=== PATIENT | female | born 1965 | race Caucasian/White ===

== ENCOUNTER 2017-02-10 11:32 | Emergency (ER) | payer OTHER ==
[2017-02-10 11:59] LABS: #Basophils 0.1 thou/uL (0.0-0.2); #Eosinphils 0.1 thou/uL (0.0-0.7); #Lymphocytes 2.3 thou/uL (1.20-3.40); #Monocytes 0.3 thou/uL (0.11-0.59); #Neutrophils 2.3 thou/uL (1.40-6.50); %Basophils 1.3 % (0.0-1.0); %Eosinophils 1.4 % (0.0-10.0); %Lymphocytes 45.4 % (21.0-51.0); %Monocytes 5.8 % (0.0-10.0); Hemoglobin 12.2 g/dL (12.0-16.0); Mean Corpuscular HGB CONC 32.7 g/dL (32.0-36.0); Mean Corpuscular Hemoglobin 29.1 pg (27.0-31.0); Mean Platelet Volume 6.9 fL (7.4-10.4); Platelet Count 276 thou/uL (130-400); RBC Distribution Width 12.7 % (11.5-14.5)
[2017-02-10 12:13] LABS: ALT (SGPT) 12 U/L (8-55); AST (SGOT) 13 U/L (5-34); Albumin 4.3 g/dL (3.5-5.0); Alkaline Phosphatase 76 U/L (40-150); Anion Gap 15 mmol/L (10-20); BUN (Urea Nitrogen) 14 mg/dL (9.8-20.1); Bilirubin, Total 0.3 mg/dL (0.2-1.2); Calc. Creatinine Clearance 0 mL/min (70-130); Calcium 9.8 mg/dL (7.8-10.44); Carbon Dioxide 26 mmol/L (22-29); Chloride 103 mmol/L (98-107); Estimated GFR-MDRD 89; Globulin 3.2 g/dL (2.4-3.5); Glucose 94 mg/dL (70-105); Lipase 39 U/L (8-78); Potassium 4.2 mmol/L (3.5-5.1); Protein, Total 7.5 g/dL (6.0-8.3); Sodium 140 mmol/L (136-145)
[2017-02-10 12:14] LABS: CKMB 0.9 ng/mL (0-6.6); Troponin I 0.011 ng/mL (< 0.028)
--- NOTE | 2017-02-10 13:10 | RAD ---
RADIOGRAPH CHEST 2 VIEWS: HISTORY: A 51-year-old female with acute chest pain on the left side, pressure type. FINDINGS: There is no air space density, pulmonary edema, pleural effusion, pneumothorax, or cardiomegaly. IMPRESSION: No acute cardiopulmonary findings. jn [] POS: [facility]
--- NOTE | 2017-03-24 15:48 | EKG ---
Test Reason : Blood Pressure : / mmHG Vent. Rate : 086 BPM Atrial Rate : 086 BPM P-R Int : 162 ms QRS Dur : 102 ms QT Int : 378 ms P-R-T Axes : 059 077 044 degrees QTc Int : 452 ms Normal sinus rhythm Normal ECG Confirmed by KASSY CENTENO D.O. ([id number]), editorial intern TIMOTEO ARGUETA ([id number] on 03/24/2017 3:47:53 PM Referred By: TARYN Confirmed By:KASSY CENTENO D.O.
== END 2017-02-10 12:22 | disposition home or self-care (01) ==
LOC: SCSER 11:32
DX: R07.89 Other chest pain (principal); K21.9 Gastro-esophageal reflux disease without esophagitis; Z79.899 Other long term (current) drug therapy
CPT/HCPCS: 71020; 80053; 82553; 83690; 83880; 84484; 85025; 93005

== ENCOUNTER 2017-04-23 09:21 | Outpatient (CLI) | payer OTHER ==
--- NOTE | 2017-04-23 10:16 | RAD ---
CHEST PA AND LATERAL: HISTORY: A 51-year-old female with a history of dyspnea. COMPARISON: 10/24/16. FINDINGS: Patchy parenchymal changes are noted in the superior segment of the left lower lobe, evidence for pne umonia. Small hiatal hernia. Heart size is normal. No pleural effusion. IMPRESSION: Evidence for patchy left lower lobe superior segment pneumonia. Recommend followup over 3-4 weeks to document clearing. POS: [facility]
== END 2017-04-23 09:22 | disposition home or self-care (01) ==
LOC: RAD 09:21
PROVIDERS: ATTEND Internal Medicine Pulmonary Disease
DX: R06.00 Dyspnea, unspecified (principal); J18.9 Pneumonia, unspecified organism
CPT/HCPCS: 71046

== ENCOUNTER 2017-08-30 17:36 | Emergency (ER) | payer OTHER ==
[2017-08-30] MEDS ORDERED: Ketorolac Tromethamine 60 MG/2 ML VIAL ONE (18:08)
[2017-08-30] MEDS ORDERED: Cyclobenzaprine 10 MG TAB ONE (18:08)
--- NOTE | 2017-08-30 19:20 | RAD ---
THREE VIEWS RIGHT SHOULDER: 08/30/17 HISTORY: Right shoulder pain, decreased range of motion. COMPARISON: None available. FINDINGS: The coracoclavicular and acromioclavicular distances are within normal limits. There is no evidence o f a fracture, dislocation, or other osseous abnormality involving the right shoulder. IMPRESSION: No acute osseous abnormality. POS: [facility]
== END 2017-08-30 19:22 | disposition home or self-care (01) ==
LOC: SCSER 17:36
DX: M25.511 Pain in right shoulder (principal); K21.9 Gastro-esophageal reflux disease without esophagitis
CPT/HCPCS: 96372; J1885

== ENCOUNTER 2018-04-03 08:47 | Outpatient (CLI) | payer OTHER ==
--- NOTE | 2018-04-03 09:46 | RAD ---
RIGHT INDEX FINGER THREE VIEWS: 04/03/2018 HISTORY: Injury. Trauma. Pain. COMPARISON: None. FINDINGS: There is soft tissue swelling involving the index finger, most prominent at the base. There is no ra diopaque foreign body or subcutaneous gas. No displaced fracture or dislocation. IMPRESSION: No acute osseous abnormality. POS: [facility]
== END 2018-04-03 08:48 | disposition home or self-care (01) ==
LOC: SCSRAD 08:47
PROVIDERS: ATTEND Nurse Practitioner Family
DX: M79.641 Pain in right hand (principal)

== ENCOUNTER 2020-01-28 09:20 | Emergency (ER) | payer OTHER ==
[2020-01-28] MEDS ORDERED: Ibuprofen 800 MG TAB ONE (10:07)
--- NOTE | 2020-01-28 10:19 | RAD ---
EXAM: 3 views of the left hand COMPARISON: None HISTORY: Thumb pain after trauma FINDINGS: 3 views of the hand shows no evidence of acute fracture or dislocation. No degenerative brock nges are seen. Mild thumb soft tissue swelling is present. IMPRESSION: No evidence of acute osseous abnormality.
== END 2020-01-28 10:35 | disposition home or self-care (01) ==
LOC: ERS 09:20
DX: S60.012A Contusion of left thumb without damage to nail, initial encounter (principal); W19.XXXA Unspecified fall, initial encounter; Y99.0 Civilian activity done for income or pay

== ENCOUNTER 2020-12-02 14:00 | Outpatient (CLI) | payer OTHER | END 2020-12-02 14:01 | disposition home or self-care (01) | LOC: BICRAD 14:00 | PROVIDERS: ATTEND Family Medicine | DX: R06.02 Shortness of breath (principal) | CPT/HCPCS: 71046 ==

== ENCOUNTER 2021-08-23 14:56 | Outpatient (CLI) | payer BC | END 2021-08-23 14:57 | disposition home or self-care (01) | LOC: SCSRAD 14:56 | PROVIDERS: ATTEND Family Medicine | DX: R05.9 Cough, unspecified (principal); K44.9 Diaphragmatic hernia without obstruction or gangrene | CPT/HCPCS: 71046 ==

== ENCOUNTER 2021-11-16 11:14 | Outpatient (CLI) | payer BC | END 2021-11-16 11:15 | disposition home or self-care (01) | LOC: BICRAD 11:14 | PROVIDERS: ATTEND Nurse Practitioner Family | DX: M54.42 Lumbago with sciatica, left side (principal); G89.29 Other chronic pain; M43.16 Spondylolisthesis, lumbar region; M47.816 Spondylosis without myelopathy or radiculopathy, lumbar region | CPT/HCPCS: 72100 ==

== ENCOUNTER 2021-11-18 07:15 | Outpatient (CLI) | payer BC | END 2021-11-18 07:16 | disposition home or self-care (01) | LOC: RAD 07:15 | PROVIDERS: ATTEND Surgery | DX: K21.9 Gastro-esophageal reflux disease without esophagitis (principal); K44.9 Diaphragmatic hernia without obstruction or gangrene | CPT/HCPCS: 74246 ==

== ENCOUNTER 2021-11-22 13:53 | Outpatient (CLI) | payer BC | END 2021-11-22 13:54 | disposition home or self-care (01) | LOC: MRI 13:53 | PROVIDERS: ATTEND Nurse Practitioner Family | DX: M54.42 Lumbago with sciatica, left side (principal); G89.29 Other chronic pain; M48.061 Spinal stenosis, lumbar region without neurogenic claudication; M48.07 Spinal stenosis, lumbosacral region; M43.16 Spondylolisthesis, lumbar region | CPT/HCPCS: 72148 ==

== ENCOUNTER 2022-06-28 09:32 | Outpatient (CLI) | payer BC | END 2022-06-28 09:33 | disposition home or self-care (01) | LOC: MRI 09:32 | PROVIDERS: ATTEND Anesthesiology Pain Medicine | DX: M48.062 Spinal stenosis, lumbar region with neurogenic claudication (principal); M51.36 Other intervertebral disc degeneration, lumbar region; M47.816 Spondylosis without myelopathy or radiculopathy, lumbar region | CPT/HCPCS: 72148 ==

== ENCOUNTER 2022-10-13 13:14 | Outpatient (CLI) | payer BC | END 2022-10-13 13:15 | disposition home or self-care (01) | LOC: DTY/OP 13:14 | PROVIDERS: ATTEND Surgery | DX: K21.9 Gastro-esophageal reflux disease without esophagitis (principal); K44.9 Diaphragmatic hernia without obstruction or gangrene; K31.1 Adult hypertrophic pyloric stenosis | CPT/HCPCS: 97802 ==

== ENCOUNTER 2023-01-08 08:23 | Outpatient (CLI) | payer BC ==
[2023-01-08 10:46] LABS: Hematocrit 35.8 % (34.9-44.5); Hemoglobin 11.7 g/dL (12.0-15.5); Manual Diff?? YES; Mean Corpuscular HGB CONC 32.7 g/dL (32.0-36.0); Mean Corpuscular Hemoglobin 30.2 pg (27.0-33.0); Mean Corpuscular Volume 92.3 fl (81.6-98.3); Mean Platelet Volume 10.5 fl (7.4-10.4); Platelet Count 275 10x3/uL (150-450); Red Blood Cell (RBC) Count 3.88 10x6/uL (3.90-5.03); White Blood Cell (WBC) Count 5.3 10x3/uL (3.5-10.5)
[2023-01-08 11:14] LABS: Band 1 % (5-11); Lymphocytes 62 % (21-51); Monocytes 8 % (0-10); Neutrophil 28 % (42-75); Platelet Adequacy Comment Appears Adequate; RBC Morph Comment Within Normal Limits; Reactive Lymphocytes 1 % (0-10)
[2023-01-08 11:25] LABS: Anion Gap 15 mmol/L (10-20); BUN (Urea Nitrogen) 17 mg/dL (9.8-20.1); Calc. Creatinine Clearance 0 mL/min (70-130); Calcium 8.9 mg/dL (7.8-10.44); Carbon Dioxide 25 mmol/L (22-29); Chloride 103 mmol/L (98-107); Estimated GFR 100; Glucose 84 mg/dL (70-105); Potassium 4.5 mmol/L (3.5-5.1); Sodium 138 mmol/L (136-145)
== END 2023-01-08 08:24 | disposition home or self-care (01) ==
LOC: LABBT 08:23
PROVIDERS: ATTEND Surgery
DX: Z01.818 Encounter for other preprocedural examination (principal); K44.9 Diaphragmatic hernia without obstruction or gangrene; K31.1 Adult hypertrophic pyloric stenosis
CPT/HCPCS: 80048; 85025; 93005; 93010

== ENCOUNTER 2023-01-16 05:37 | Inpatient (IN) | payer BC ==
[2023-01-16] MEDS ORDERED: EPINEPHrine 1 MG/ML VIAL ONE (06:47)
[2023-01-16] MEDS ORDERED: Bupivacaine 0.25% HCL 30 ML VIAL ONE (06:48)
[2023-01-16] MEDS ORDERED: Lidocaine 1% MPF 2 ML VIAL ONE (06:53)
[2023-01-16] MEDS ORDERED: PROPOFOL 20 ML ONE ×2 (07:01→08:44)
[2023-01-16] MEDS ORDERED: fentaNYL PF 100 MCG/2 ML SYRINGE ONE ×2 (07:01→08:33)
[2023-01-16] MEDS ORDERED: Lidocaine 1% PF 5 ML VIAL ONE ×2 (07:01→07:43)
[2023-01-16] MEDS ORDERED: Rocuronium Bromide 10 MG/ML (10ML VIAL) ONE ×2 (07:01→07:43)
[2023-01-16] MEDS ORDERED: Succinylcholine 200 MG/10 ml SYRINGE FS ONE (07:03)
[2023-01-16] MEDS ORDERED: Famotidine/PF 20 mg/2ml Vial ONE (07:21)
[2023-01-16] MEDS ORDERED: PROPOFOL 40 ML ONE (07:25)
[2023-01-16] MEDS ORDERED: LevoFLOXacin 500 mg/D5W 100 ML BAG ONE (07:37)
[2023-01-16] MEDS ORDERED: Ondansetron PF 4 MG/2 ML Vial ONE ×3 (07:43→12:11)
[2023-01-16] MEDS ORDERED: Glycopyrrolate 0.2 MG/ML 5 ML SYRINGE ONE ×2 (07:43→09:53)
[2023-01-16] MEDS ORDERED: NEOSTIGMINE 3 MG/3 ML SYR 3 MG/3 ML SYRINGE ONE ×2 (07:43→09:53)
[2023-01-16] MEDS ORDERED: Dexamethasone 20 MG/5 ML VIAL ONE ×2 (07:43→07:59)
[2023-01-16] MEDS ORDERED: PHENYLEPHRINE-NS 100 MCG/ML 10 ML SYRINGE ONE ×2 (07:43→08:21)
[2023-01-16] MEDS ORDERED: PROPOFOL 200 MG/20 ML VIAL ONE (07:43)
[2023-01-16] MEDS ORDERED: Esmolol 100 MG/10 ML VIAL ONE ×2 (08:08→08:37)
[2023-01-16] MEDS ORDERED: Dexmedetomidine 200 MCG/2 ML VIAL ONE (08:21)
[2023-01-16] MEDS ORDERED: Phenylephrine 40 MG/NS 250 ML 250 ML ONE (08:49)
[2023-01-16] MEDS ORDERED: diphenhydrAMINE 25 MG CAP PO PRN (09:52)
[2023-01-16] MEDS ORDERED: Ondansetron HCl/PF 4 MG/2 ML Vial IVP PRN (09:52)
[2023-01-16] MEDS ORDERED: FENTANYL 500 MCG/10 ML VIAL 2,000 MCG in Sodium Chloride 0.9% 60 ML IV PRN (09:52)
[2023-01-16] MEDS ORDERED: Ondansetron PF 4 MG/2 ML Vial IVP PRN ×2 (09:52→10:23)
[2023-01-16] MEDS ORDERED: Promethazine HCl 25 MG/ML VIAL IM PRN ×3 (09:52→10:23)
[2023-01-16] MEDS ORDERED: diphenhydrAMINE 50 MG/ML VIAL IVP PRN ×2 (09:52→10:23)
[2023-01-16] MEDS ORDERED: Naloxone HCl 0.4 mg/ml Vial IV PRN (09:52)
[2023-01-16] MEDS ORDERED: diphenhydrAMINE 50 MG/ML VIAL IM PRN (09:52)
[2023-01-16] MEDS ORDERED: Communication Order-Pharmacy FS SCH (10:00)
[2023-01-16] MEDS ORDERED: Dextrose 50% Abboject 50 ML SYRINGE SLOW IVP PRN (10:23)
[2023-01-16] MEDS ORDERED: Acetaminophen 325 MG/10.15 ML UDCUP PO PRN (10:23)
[2023-01-16] MEDS ORDERED: Dextrose 5% in Water 1,000 ML IV PRN (10:23)
[2023-01-16] MEDS ORDERED: hydrALAZINE 20 MG/ML VIAL SLOW IVP PRN (10:23)
[2023-01-16] MEDS ORDERED: Glucagon 1 MG/ML KIT IM PRN (10:23)
[2023-01-16] MEDS ORDERED: Hydrocodone-Acetamin 15 ML UDCUP PO PRN (10:23)
[2023-01-16] MEDS ORDERED: Albuterol 200 PUFF (6.7GM INHALER) INH PRN (10:23)
[2023-01-16] MEDS ORDERED: Ipratropium/Albuterol 3 ML NEB NEB PRN (10:23)
[2023-01-16] MEDS ORDERED: fentaNYL 50 mcg/mL 1 mL Vial ONE ×2 (10:34→10:50)
[2023-01-16] MEDS ORDERED: Artificial Tear Sol 15 ML BOT EA EYE PRN (10:40)
[2023-01-16] MEDS: D5 1/2 NS w/20 mEq KCL 1,000 ML IV SCH ×3 (14:39→22:40)
[2023-01-16 14:41] VITALS: BMI 29.0
[2023-01-16] MEDS: Ketorolac Tromethamine 30 MG/ML VIAL IVP PRN ×2 (16:22→22:16)
[2023-01-16] MEDS: Estradiol 1 MG TAB PO SCH (21:13)
[2023-01-17 05:08] LABS: #Monocytes 0.7 thou/uL (0.11-0.59); #Neutrophils 4.9 thou/uL (1.40-6.50); %Basophils 0.4 % (0.0-1.0); %Lymphocytes 19.7 % (21.0-51.0); %Monocytes 9.7 % (0.0-10.0); %Neutrophils 70.1 % (42.0-75.0); Hematocrit 33.7 % (36.0-47.0); Hemoglobin 10.9 g/dL (12.0-16.0); Mean Corpuscular HGB CONC 32.3 g/dL (32.0-36.0); Mean Corpuscular Hemoglobin 31.1 pg (27.0-31.0); Mean Platelet Volume 10.3 fL (7.4-10.4); Platelet Count 222 10x3/uL (130-400); RBC Distribution Width 12.9 % (11.5-14.5); Red Blood Cell (RBC) Count 3.51 mill/uL (4.20-5.40)
[2023-01-17] MEDS: Ketorolac Tromethamine 30 MG/ML VIAL IVP PRN ×3 (05:26→18:14)
[2023-01-17 05:49] LABS: Anion Gap 14 mmol/L (10-20); BUN (Urea Nitrogen) 6 mg/dL (9.8-20.1); Calc. Creatinine Clearance 105 mL/min (70-130); Calcium 8.4 mg/dL (7.8-10.44); Carbon Dioxide 19 mmol/L (22-29); Chloride 107 mmol/L (98-107); Estimated GFR 100; Glucose 105 mg/dL (70-105); Potassium 4.2 mmol/L (3.5-5.1); Sodium 136 mmol/L (136-145)
[2023-01-17] MEDS: D5 1/2 NS w/20 mEq KCL 1,000 ML IV SCH ×2 (06:38→14:50)
[2023-01-17] MEDS ORDERED: Fentanyl 100 MCG/2 ML VIAL SLOW IVP PRN (09:13)
[2023-01-17] MEDS ORDERED: fentaNYL 50 mcg/mL 1 mL Vial SLOW IVP PRN (09:24)
[2023-01-17] MEDS: Pantoprazole 40 MG VIAL IVP SCH (09:33)
[2023-01-17] MEDS: Hydrocodone-Acetamin 15 ML UDCUP PO PRN ×2 (09:33→14:49)
[2023-01-17] MEDS: Estradiol 1 MG TAB PO SCH (20:54)
[2023-01-18] MEDS: Ketorolac Tromethamine 30 MG/ML VIAL IVP PRN ×3 (00:06→11:40)
[2023-01-18] MEDS: Hydrocodone-Acetamin 15 ML UDCUP PO PRN ×2 (03:19→09:43)
[2023-01-18] MEDS: D5 1/2 NS w/20 mEq KCL 1,000 ML IV SCH ×2 (03:20→11:26)
[2023-01-18 04:17] VITALS: TEMP 98.4
[2023-01-18 08:04] VITALS: BP 115/73
[2023-01-18] MEDS: Pantoprazole 40 MG VIAL IVP SCH (09:44)
== END 2023-01-18 12:32 | disposition home or self-care (01) | DRG 327 ==
LOC: SDC 05:37 → SJJU 13:15
PROVIDERS: ADMIT Surgery; ATTEND Surgery
PROC: 0BQT4ZZ Repair Diaphragm, Percutaneous Endoscopic Approach (ICD-10-PCS; principal; 2023-01-16)
PROC: 0D164ZA Bypass Stomach to Jejunum, Percutaneous Endoscopic Approach (ICD-10-PCS; 2023-01-16)
PROC: 0DB64ZZ Excision of Stomach, Percutaneous Endoscopic Approach (ICD-10-PCS; 2023-01-16)
PROC: 8E0W4CZ Robotic Assisted Procedure of Trunk Region, Percutaneous Endoscopic Approach (ICD-10-PCS; 2023-01-16)
PROC: 3E033XZ Introduction of Vasopressor into Peripheral Vein, Percutaneous Approach (ICD-10-PCS; 2023-01-16)
DX: K44.9 Diaphragmatic hernia without obstruction or gangrene (principal); K31.1 Adult hypertrophic pyloric stenosis; K21.9 Gastro-esophageal reflux disease without esophagitis; Z96.652 Presence of left artificial knee joint; Z79.899 Other long term (current) drug therapy; Z79.890 Hormone replacement therapy; Z98.890 Other specified postprocedural states; Z90.710 Acquired absence of both cervix and uterus; Z82.49 Family history of ischemic heart disease and other diseases of the circulatory system; Z88.0 Allergy status to penicillin; Z91.040 Latex allergy status; Z91.018 Allergy to other foods
CPT/HCPCS: 36415; 80048; 85025; 88307; 94760; C9113; J0171; J1100; J1650; J1885; J1956; J2405; J2704; J3010; J3480; J3490; S0020; S0028

== ENCOUNTER 2023-03-26 08:42 | Outpatient (CLI) | payer BC ==
[2023-03-26] MEDS ORDERED: Magnevist 469MG/ML 20 ML VIAL ONE ×2 (11:13)
== END 2023-03-26 08:43 | disposition home or self-care (01) ==
LOC: MRI 08:42
PROVIDERS: ATTEND Student in an Organized Health Care Education/Training Program
DX: H53.40 Unspecified visual field defects (principal); R22.0 Localized swelling, mass and lump, head
CPT/HCPCS: 70543; 70553

== ENCOUNTER 2023-04-09 14:22 | Outpatient (CLI) | payer BC | END 2023-04-09 14:23 | disposition home or self-care (01) | LOC: BICMAMMO 14:22 | PROVIDERS: ATTEND Family Medicine | DX: Z12.31 Encounter for screening mammogram for malignant neoplasm of breast (principal); Z85.43 Personal history of malignant neoplasm of ovary; Z98.890 Other specified postprocedural states; Z80.3 Family history of malignant neoplasm of breast | CPT/HCPCS: 77063; 77067 ==

== ENCOUNTER 2023-09-01 12:39 | Outpatient (CLI) | payer BC | END 2023-09-01 12:40 | disposition home or self-care (01) | LOC: RAD 12:39 | PROVIDERS: ATTEND Family Medicine | DX: J20.9 Acute bronchitis, unspecified (principal) | CPT/HCPCS: 71046 ==

== ENCOUNTER 2023-09-10 08:11 | Outpatient (CLI) | payer BC ==
[2023-09-10] MEDS ORDERED: Barium Sulfate 96% 176 GM BOT (xray ONLY) ONE (09:11)
[2023-09-10] MEDS ORDERED: E-Z-HD 98% W/W 340GM BOT (x-ray ONLY) ONE (09:11)
== END 2023-09-10 08:12 | disposition home or self-care (01) ==
LOC: RAD 08:11
PROVIDERS: ATTEND Surgery
DX: R13.10 Dysphagia, unspecified (principal); K44.9 Diaphragmatic hernia without obstruction or gangrene; R93.3 Abnormal findings on diagnostic imaging of other parts of digestive tract; Z93.4 Other artificial openings of gastrointestinal tract status
CPT/HCPCS: 74220

== ENCOUNTER 2024-09-26 08:02 | Outpatient (CLI) | payer BC | END 2024-09-26 08:03 | disposition home or self-care (01) | LOC: BICRAD 08:02 | PROVIDERS: ATTEND Nurse Practitioner Family | DX: R06.00 Dyspnea, unspecified (principal) | CPT/HCPCS: 71046 ==

== ENCOUNTER 2025-01-06 09:53 | Emergency (ER) | payer BC ==
[2025-01-06 10:33] LABS: #Basophils 0.04 10x3/uL (0.0-0.2); #Eosinophils 0.08 10x3/uL (0.0-0.7); #Monocytes 0.60 10x3/uL (0.11-0.59); #Neutrophils 4.77 10x3/uL (1.40-6.50); %Basophils 0.5 % (0.0-1.0); %Eosinophils 0.9 % (0.0-10.0); %Lymphocytes 37.4 % (21.0-51.0); %Monocytes 6.8 % (0.0-10.0); %Neutrophils 54.1 % (42.0-75.0); Hematocrit 36.8 % (36.0-47.0); Hemoglobin 11.3 g/dL (12.0-16.0); Mean Corpuscular Hemoglobin 26.7 pg (27.0-31.0); Mean Corpuscular Volume 87.0 fL (78.0-98.0); Platelet Count 369 10x3/uL (130-400); Red Blood Cell (RBC) Count 4.23 mill/uL (4.20-5.40); White Blood Cell (WBC) Count 8.82 10x3/uL (4.8-10.8)
[2025-01-06 10:54] LABS: ALT (SGPT) 20 U/L (Less than 34); AST (SGOT) 12 U/L (11-34); Albumin 4.2 g/dL (3.1-4.5); Alkaline Phosphatase 75 U/L (40-110); Anion Gap 17 mmol/L (10-20); BUN (Urea Nitrogen) 11 mg/dL (9.8-20.1); Bilirubin, Total 0.5 mg/dL (0.3-1.2); Calc. Creatinine Clearance 0 mL/min (70-130); Calcium 9.7 mg/dL (7.8-10.44); Carbon Dioxide 26 mmol/L (23-31); Chloride 103 mmol/L (98-107); Globulin 3.0 g/dL (2.4-3.5); Glucose 84 mg/dL (80-115); Potassium 4.0 mmol/L (3.5-5.1); Sodium 142 mmol/L (136-145)
[2025-01-06] MEDS ORDERED: Aspirin Chewable 81 MG TAB ONE (13:12)
== END 2025-01-06 13:26 | disposition home or self-care (01) ==
LOC: ERS 09:53
DX: R07.9 Chest pain, unspecified (principal)
CPT/HCPCS: 71045; 80053; 83880; 84484; 85025; 86141; 93005